=== PATIENT | male | born 2000 | race African-American/Black ===

== ENCOUNTER 2024-04-29 18:19 | Emergency (ER) | payer BC, OTHER ==
[2024-04-29 18:30] VITALS: BP 110/77; PULSE 61; RESP 20; TEMP 98.1; BMI 29.2
[2024-04-29] MEDS ORDERED: IBUPROFEN 400 MG TABLET (FP) PO ONE (19:23)
[2024-04-29] MEDS ORDERED: ACETAMINOPHEN 500 MG TABLET (FP) ONE (19:24)
[2024-04-29] MEDS: ACETAMINOPHEN 500 MG TABLET (FP) PO ONE (19:24)
[2024-04-29] MEDS: IBUPROFEN 400 MG TABLET (FP) PO ONE (19:24)
== END 2024-04-29 20:36 | disposition home or self-care (01) ==
LOC: JERFT 18:19
DX: S83.91XA Sprain of unspecified site of right knee, initial encounter (principal); M62.830 Muscle spasm of back; V49.40XA Driver injured in collision with unspecified motor vehicles in traffic accident, initial encounter
CPT/HCPCS: 73562-TC-RT-FY; 99283-25